=== PATIENT | male | born 1985 | race Two or more races ===

== ENCOUNTER 2020-07-05 05:01 | Emergency (ER) | payer MEDICAID, OTHER ==
[~2020-07-05] VITALS: Ht 175.3 cm; Wt 78.0 kg
[2020-07-05] MEDS ORDERED: OMEP10 PO (05:15)
[2020-07-05 06:34] VITALS: BP 135/67
== END 2020-07-05 06:30 | disposition home or self-care (01) ==
LOC: EMS 05:01
DX: J02.9 Acute pharyngitis, unspecified (principal); R10.13 Epigastric pain
CPT/HCPCS: 99283; Z7502

== ENCOUNTER 2020-08-20 10:00 | Emergency (ER) | payer OTHER ==
[~2020-08-20] VITALS: Ht 177.8 cm; Wt 80.0 kg
[~2020-08-20 10:00] MED LIST: OMEP10 PO
[2020-08-20] MEDS ORDERED: IBUP-2759 PO (10:04)
[2020-08-20] MEDS ORDERED: IBUPROFEN 600 MG TABLET PO ONE (11:00)
[2020-08-20 11:30] VITALS: BP 117/85
[2020-08-21] MEDS ORDERED: OMEP20 PO (13:28)
[2020-08-21] MEDS ORDERED: IBUP-2070 PO (13:28)
== END 2020-08-20 12:27 | disposition home or self-care (01) ==
LOC: EMS 10:00
DX: J02.9 Acute pharyngitis, unspecified (principal); Z20.828 Contact with and (suspected) exposure to other viral communicable diseases
CPT/HCPCS: 87430; 99283; U0003

== ENCOUNTER 2020-08-21 13:22 | Emergency (ER) | payer OTHER ==
[~2020-08-21] VITALS: Ht 167.6 cm; Wt 80.0 kg
[~2020-08-21 13:22] MED LIST changes: +IBUP-2759 PO; -OMEP10 PO
[2020-08-21 13:24] VITALS: BP 128/62
[2020-08-21] MEDS ORDERED: IBUP-2070 PO (13:28)
[2020-08-21] MEDS ORDERED: OMEP20 PO (13:28)
== END 2020-08-21 16:08 | disposition left against medical advice (07) ==
LOC: EMS 13:24
DX: J02.9 Acute pharyngitis, unspecified (principal); Z53.21 Procedure and treatment not carried out due to patient leaving prior to being seen by health care provider

== ENCOUNTER 2020-10-03 22:01 | Emergency (ER) | payer OTHER ==
[~2020-10-03] VITALS: Ht 175.3 cm; Wt 80.0 kg
[~2020-10-03 22:01] MED LIST changes: +IBUP-2070 PO; -IBUP-2759 PO; +OMEP20 PO
[2020-10-03] MEDS ORDERED: SODIUM CHLORIDE 0.9% 1,000 ML IV ONE (23:15)
[2020-10-03 23:28] LABS: COVID AG,FIA SOURCE NASOPHARYNGEAL
[2020-10-03] MEDS ORDERED: KETOROLAC TROMETHAMINE 30 MG/ML VIAL IVP ONE (23:45)
[2020-10-03] MEDS ORDERED: ACETAMINOPHEN 325 MG TABLET PO ONE (23:45)
[2020-10-03 23:54] LABS: INFLUENZA TYPE A NEGATIVE FOR TYPE A (NEGATIVE); INFLUENZA TYPE B NEGATIVE FOR TYPE B (NEGATIVE)
[2020-10-03 23:55] LABS: RAPID GROUP A STREP NEGATIVE (NEGATIVE)
[2020-10-04] MEDS ORDERED: PENICILLIN G BENZATHINE LA 1,200,000 UNITS/2 ML SYRINGE IM ONE
[2020-10-04 00:43] VITALS: BP 126/65
== END 2020-10-04 01:13 | disposition home or self-care (01) ==
LOC: EMS 22:02
DX: J02.0 Streptococcal pharyngitis (principal); R50.9 Fever, unspecified; Z20.828 Contact with and (suspected) exposure to other viral communicable diseases
CPT/HCPCS: 87426; 87430; 87804; 96361; 96372; 96374; 99283; J0561; J1885; J7030

== ENCOUNTER 2020-11-17 19:50 | Emergency (ER) | payer OTHER ==
[~2020-11-17] VITALS: Ht 175.3 cm; Wt 80.0 kg
[2020-11-17] MEDS ORDERED: ACETAMINOPHEN 500 MG TABLET PO ONE (22:15)
[2020-11-17] MEDS ORDERED: IBUPROFEN 800 MG TABLET PO ONE (22:15)
[2020-11-17 23:14] LABS: COVID AG,FIA SOURCE NASOPHARYNGEAL
[2020-11-17 23:47] LABS: RAPID GROUP A STREP NEGATIVE (NEGATIVE)
[2020-11-18 00:41] VITALS: BP 127/88
== END 2020-11-18 00:48 | disposition home or self-care (01) ==
LOC: EMS 19:52
DX: J03.90 Acute tonsillitis, unspecified (principal); Z20.822 Contact with and (suspected) exposure to COVID-19
CPT/HCPCS: 87070; 87081; 87426; 87430

== ENCOUNTER 2021-09-18 22:36 | Emergency (ER) | payer OTHER ==
[~2021-09-18] VITALS: Ht 175.3 cm; Wt 80.0 kg
[2021-09-18 23:08] LABS: COVID AG,FIA SOURCE NASOPHARYNGEAL
[2021-09-18 23:35] VITALS: BP 128/72
[2021-09-18] MEDS ORDERED: ACETAMINOPHEN 325 MG TABLET PO ONE (23:45)
[2021-09-18] MEDS ORDERED: PB/HYOSCY/ATR/SCOP/LIDO/MAALOX 55 ML BOTTLE PO ONE (23:45)
== END 2021-09-18 23:36 | disposition home or self-care (01) ==
LOC: EMS 22:37
DX: J02.9 Acute pharyngitis, unspecified (principal); Z20.822 Contact with and (suspected) exposure to COVID-19; Z79.899 Other long term (current) drug therapy
CPT/HCPCS: 87430; 99283

== ENCOUNTER 2022-04-11 14:48 | Emergency (ER) | payer OTHER ==
[~2022-04-11] VITALS: Ht 175.3 cm; Wt 79.5 kg
[2022-04-11 17:34] VITALS: BP 119/72
== END 2022-04-11 17:34 | disposition home or self-care (01) ==
LOC: EMS 14:48
DX: S13.4XXA Sprain of ligaments of cervical spine, initial encounter (principal); Z98.890 Other specified postprocedural states; V49.60XA Unspecified car occupant injured in collision with unspecified motor vehicles in traffic accident, initial encounter; Y93.89 Activity, other specified; Y92.89 Other specified places as the place of occurrence of the external cause; Y99.8 Other external cause status
CPT/HCPCS: 71045; 72040; 99284